=== PATIENT | male | born 1935 | race Caucasian/White ===

== ENCOUNTER 2019-03-10 18:13 | Inpatient (IN) | payer MEDICARE, BC ==
[~2019-03-10] VITALS: Ht 168.9 cm; Wt 76.7 kg
[2019-03-10] MEDS ORDERED: IV NORMAL SALINE 1,000ML 1,000 ML IV ONE ×3 (18:30→21:15)
--- NOTE | 2019-03-10 18:35 | EKG ---
[address] [address] Test Date: 2019-03-10 Test Time: 18:19:48 Pat Name: CHACHA HA Department: Room: Gender: M [employer] Operator: NABIL : 1935 Requested By: KYARA LO Order Number: [id number] Reading MD: Measurements Intervals [place] Rate: 115 P: -135 KS: 96 QRS: 83 QRSD: 92 T: 62 QT: 318 QTc: 442 Interpretive Statements SINUS TACHYCARDIA QRS(T) CONTOUR ABNORMALITY CONSIDER ANTEROSEPTAL MYOCARDIAL DAMAGE POSSIBLY ABNORMAL ECG RI6.01 No previous ECG available for comparison
[2019-03-10 18:45] LABS: BASO # 0.1 x10^3/uL (0.0-0.2); BASO % 1 % (0-3); EOS # 0.3 x10^3/uL (0.0-0.7); EOS % 2 % (0-3); HEMATOCRIT 44.1 % (39.0-53.0); HEMOGLOBIN 14.1 g/dL (13.0-17.5); LYMPH # 5.1 x10^3/uL (1.0-4.8); LYMPH % 36 % (24-48); MEAN CORPUSCULAR HEMOGLOBIN 29 pg (25-35); MEAN CORPUSCULAR HGB CONC 32 g/dL (31-37); MEAN CORPUSCULAR VOLUME 90 fL (79-100); MONO # 1.3 x10^3/uL (0.0-1.1); MONO % 9 % (0-9); NEUT # 7.3 x10^3uL (1.8-7.7); NEUT % 52 % (31-73); PLATELET COUNT 223 x10^3/uL (140-400); RED BLOOD COUNT 4.89 x10^6/uL (4.30-5.70); WHITE BLOOD COUNT 14.2 x10^3/uL (4.0-11.0)
--- NOTE | 2019-03-10 19:01 | RAD ---
INDICATION: Altered mental status and head and neck pain COMPARISON: None. TECHNIQUE: Axial CT images obtained through the head and cervical spine. One or more of the following individualized dose reduction techniques were utilized for this examination: 1. Automated exposure control; 2. Adjustment of the mA and/or kV according to patient size; 3. Use of iterative reconstruction technique. FINDINGS: Head: No midline shift. Suprasellar cistern is not effaced. Bowing of nasal septum to the right. No acute intracranial hemorrhage. Diffuse prominence of the ventricles and sulci. Cervical spine: Degenerative changes of the cervical spine with multilevel central canal and neural foraminal stenosis. There is some pannus formation at the dens. Mild superior endplate compression fracture of T1 and T2 of unknown age. Grade 1 anterolisthesis of C4 on 5 and C7 on T1. IMPRESSION: 1. No acute intracranial hemorrhage. 2. Scattered foci low density of the white matter. Nonspecific but can be seen with sequela small vessel ischemic disease. 3. Diffuse prominence of ventricles and sulci which can be seen with age-related volume loss. Other causes such as normal pressure hydrocephalus not excluded. 4. Mild compression fractures at T1 and T2 of unknown age. Would correlate with symptoms in the region. 5. 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 Report called to the ER at 6:50 PM on date of exam Electronically signed by: Miguel A Raza MD (03/10/2019 6:58 PM) [facility]
[2019-03-10 19:10] LABS: ALBUMIN 4.4 g/dL (3.4-5.0); ALBUMIN/GLOBULIN RATIO 1.6 (1.0-1.7); CALCIUM 9.6 mg/dL (8.5-10.1); CREATININE 1.5 mg/dL (0.7-1.3); GFR 44.8; MAGNESIUM 2.1 mg/dL (1.8-2.4); POTASSIUM 3.5 mmol/L (3.5-5.1); TOTAL BILIRUBIN 0.2 mg/dL (0.2-1.0); TOTAL PROTEIN 7.2 g/dL (6.4-8.2)
[2019-03-10] MEDS ORDERED: ACETAMINOPHEN 325 MG TABLET PO PRN (21:15)
[2019-03-10] MEDS ORDERED: ONDANSETRON PF 4 MG/2 ML VIAL. IV PRN (21:15)
[2019-03-10] MEDS ORDERED: DEXTROSE 50% 25 GM / 50ML DISP.SYRIN. IV PRN (21:15)
[2019-03-10 23:00] VITALS: BP 118/59
--- NOTE | 2019-03-10 23:02 | PHYS DOC ---
Past History Past Medical History: High Cholesterol, Hypertension Past Surgical History: Cholecystectomy, Tonsillectomy Alcohol Use: None Drug Use: None Adult General Chief Complaint Chief Complaint: ALTERED MENTAL STATUS HPI HPI Patient is a [age] year old [sex] who presents with [] Review of Systems Review of Systems Constitutional: Denies fever or chills [] Eyes: Denies change in visual acuity, redness, or eye pain [] HENT: Denies nasal congestion or sore throat [] Respiratory: Denies cough or shortness of breath [] Cardiovascular: No additional information not addressed in HPI [] GI: Denies abdominal pain, nausea, vomiting, bloody stools or diarrhea [] : Denies dysuria or hematuria [] Musculoskeletal: Denies back pain or joint pain [] Integument: Denies rash or skin lesions [] Neurologic: Denies headache, focal weakness or sensory changes [] Endocrine: Denies polyuria or polydipsia [] All other systems were reviewed and found to be within normal limits, except as documented in this note. Current Medications Current Medications Current Medications Medications (Trade) Dose Ordered Sig/Magi Start Time Stop Time Status Last Admin Dose Admin Acetaminophen (Tylenol) 650 mg PRN Q4HRS PRN 03/10/19 21:15 03/11/19 21:14 Dextrose (Dextrose 50%-Water Syringe) 12.5 gm PRN Q15MIN PRN 03/10/19 21:15 Ondansetron HCl (Zofran) 4 mg PRN Q4HRS PRN 03/10/19 21:15 03/11/19 21:14 Sodium Chloride 1,000 ml @ 75 mls/hr 1X ONCE 03/10/19 21:15 03/11/19 10:34 03/10/19 22:04 75 MLS/HR Allergies Allergies Allergies Coded Allergies Type Severity Reaction Last Updated Verified Penicillins Allergy Unknown 03/10/19 Yes metoprolol Allergy Unknown 03/10/19 Yes Physical Exam Physical Exam Constitutional: Well developed, well nourished, no acute distress, non-toxic appearance. [] HENT: Normocephalic, atraumatic, bilateral external ears normal, oropharynx moist, no oral exudates, nose normal. [] Eyes: PERRLA, EOMI, conjunctiva normal, no discharge. [] Neck: Normal range of motion, no tenderness, supple, no stridor. [] Cardiovascular:Heart rate regular rhythm, no murmur [] Lungs & Thorax: Bilateral breath sounds clear to auscultation [] Abdomen: Bowel sounds normal, soft, no tenderness, no masses, no pulsatile masses. [] Skin: Warm, dry, no erythema, no rash. [] Back: No tenderness, no CVA tenderness. [] Extremities: No tenderness, no cyanosis, no clubbing, ROM intact, no edema. [] Neurologic: Alert and oriented X 3, normal motor function, normal sensory function, no focal deficits noted. [] Psychologic: Affect normal, judgement normal, mood normal. [] Current Patient Data Vital Signs Vital Signs Date Time Temp Pulse Resp B/P (MAP) Pulse Ox O2 Delivery O2 Flow Rate FiO2 03/10/19 18:43 102 18 117/53 (74) 96 Room Air 03/10/19 18:15 98.0 Lab Results Laboratory Tests Test 03/10/19 18:15 White Blood Count 14.2 x10^3/uL (4.0-11.0) H Red Blood Count 4.89 x10^6/uL (4.30-5.70) Hemoglobin 14.1 g/dL (13.0-17.5) Hematocrit 44.1 % (39.0-53.0) Mean Corpuscular Volume 90 fL (79-100) Mean Corpuscular Hemoglobin 29 pg (25-35) Mean Corpuscular Hemoglobin Concent 32 g/dL (31-37) Red Cell Distribution Width 14.0 % (11.5-14.5) Platelet Count 223 x10^3/uL (140-400) Neutrophils (%) (Auto) 52 % (31-73) Lymphocytes (%) (Auto) 36 % (24-48) Monocytes (%) (Auto) 9 % (0-9) Eosinophils (%) (Auto) 2 % (0-3) Basophils (%) (Auto) 1 % (0-3) Neutrophils # (Auto) 7.3 x10^3uL (1.8-7.7) Lymphocytes # (Auto) 5.1 x10^3/uL (1.0-4.8) H Monocytes # (Auto) 1.3 x10^3/uL (0.0-1.1) H Eosinophils # (Auto) 0.3 x10^3/uL (0.0-0.7) Basophils # (Auto) 0.1 x10^3/uL (0.0-0.2) Prothrombin Time 10.0 SEC (9.4-11.4) Prothrombin Time INR 1.0 (0.9-1.1) PTT 24 SEC (23-33) Sodium Level 137 mmol/L (136-145) Potassium Level 3.5 mmol/L (3.5-5.1) Chloride Level 98 mmol/L (98-107) Carbon Dioxide Level 12 mmol/L (21-32) L Anion Gap 27 (6-14) H Blood Urea Nitrogen 13 mg/dL (8-26) Creatinine 1.5 mg/dL (0.7-1.3) H Estimated GFR (Cockcroft-Gault) 44.8 BUN/Creatinine Ratio 9 (6-20) Glucose Level 95 mg/dL (70-99) Lactic Acid Level 17.4 mmol/L (0.4-2.0) *H Calcium Level 9.6 mg/dL (8.5-10.1) Magnesium Level 2.1 mg/dL (1.8-2.4) Total Bilirubin 0.2 mg/dL (0.2-1.0) Aspartate Amino Transferase (AST) 21 U/L (15-37) Alanine Aminotransferase (ALT) 26 U/L (16-63) Alkaline Phosphatase 67 U/L (46-116) Creatine Kinase 93 U/L (39-308) Creatine Kinase MB (Mass) 1.2 ng/mL (0.0-3.6) Creatine Kinase MB Relative Index 1.3 % (0-4) Troponin I Quantitative < 0.017 ng/mL (0-0.055) Total Protein 7.2 g/dL (6.4-8.2) Albumin 4.4 g/dL (3.4-5.0) Albumin/Globulin Ratio 1.6 (1.0-1.7) Ethyl Alcohol Level < 10 mg/dL (0-10) EKG EKG @1819 Sinus tachycardia at 115bpm, slight ST depression noted to V3-V6, no reciprocal elevation, wandering baseline, QRS 92ms, QT/QTc 318/442ms Radiology/Procedures Radiology/Procedures PROCEDURE: CT HEAD AND CERVICAL SPINE WO INDICATION: Altered mental status and head and neck pain COMPARISON: None. TECHNIQUE: Axial CT images obtained through the head and cervical spine. One or more of the following individualized dose reduction techniques were utilized for this examination: 1. Automated exposure control; 2. Adjustment of the mA and/or kV according to patient size; 3. Use of iterative reconstruction technique. FINDINGS: Head: No midline shift. Suprasellar cistern is not effaced. Bowing of nasal septum to the right. No acute intracranial hemorrhage. Diffuse prominence of the ventricles and sulci. Cervical spine: Degenerative changes of the cervical spine with multilevel central canal and neural foraminal stenosis. There is some pannus formation at the dens. Mild superior endplate compression fracture of T1 and T2 of unknown age. Grade 1 anterolisthesis of C4 on 5 and C7 on T1. IMPRESSION: 1. No acute intracranial hemorrhage. 2. Scattered foci low density of the white matter. Nonspecific but can be seen with sequela small vessel ischemic disease. 3. Diffuse prominence of ventricles and sulci which can be seen with age-related volume loss. Other causes such as normal pressure hydrocephalus not excluded. 4. Mild compression fractures at T1 and T2 of unknown age. Would correlate with symptoms in the region. 5. 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 Report called to the ER at 6:50 PM on date of exam Electronically signed by: Miguel A Raza MD (03/10/2019 6:58 PM) [facility] CXR AP (preliminary interpretation by ED physician): NO acute process Course & Med Decision Making Course & Med Decision Making Pertinent Labs and Imaging studies reviewed. (See chart for details) [] Dragon Disclaimer Dragon Disclaimer This electronic medical record was generated, in whole or in part, using a voice recognition dictation system. Departure Departure: Impression: Primary Impression: New onset seizure Additional Impression: Lactic acidosis Disposition: ADMITTED INPATIENT Admitting Physician: Дмитрий Lewis Condition: STABLE Referrals: DEIRDRE NUÑEZ (PCP) Problem Qualifiers KYARA LO DO Mar 10, 2019 23:02
[2019-03-10 23:50] LABS: BILIRUBIN,URINE NEG (NEG); CLARITY,URINE CLEAR; COLOR,URINE YELLOW; GLUCOSE,URINE NEG (NEG); NITRITE,URINE NEG (NEG); UROBILINOGEN,URINE 0.2 mg/dL (0.2 mg/dL)
[2019-03-10 23:57] LABS: BACTERIA,URINE 0 /HPF (0-FEW); RBC,URINE OCC /HPF (0-2); SQUAMOUS EPITHELIAL CELL,UR FEW /LPF; WBC,URINE OCC /HPF (0-4)
[2019-03-10] MEDS ORDERED: LANS30CA PO (23:57)
[2019-03-10] MEDS ORDERED: ASPI81TA50 PO (23:57)
[2019-03-10] MEDS ORDERED: ATOR10TA60 PO (23:57)
[2019-03-10] MEDS ORDERED: GLUC100018 PO (23:57)
[2019-03-10] MEDS ORDERED: METF10007 PO (23:57)
[2019-03-10] MEDS ORDERED: TAMS0.4C97 PO (23:57)
[2019-03-10] MEDS ORDERED: DILT180C79 PO (23:57)
[2019-03-10] MEDS ORDERED: INSU100I15 SQ (23:57)
[2019-03-10] MEDS ORDERED: INSU100I32 SQ (23:57)
[2019-03-10] MEDS ORDERED: PSYL0.527 PO (23:57)
[2019-03-10] MEDS ORDERED: LATA2.5D3 OD (23:57)
[2019-03-10] MEDS ORDERED: CHLO25TA2 PO (23:57)
[2019-03-10] MEDS ORDERED: LOSA50TA14 PO (23:57)
[2019-03-11 05:38] VITALS: BP 131/73
[2019-03-11] MEDS: INSULIN LISPRO 300 UNITS/3 ML INSULN.PEN. SQ SCH ×4 (08:00→12:00)
[2019-03-11] MEDS ORDERED: metFORMIN 500 MG TABLET PO SCH (08:00)
[2019-03-11] MEDS ORDERED: PANTOPRAZOLE 40 MG TABLET. PO SCH (08:00)
[2019-03-11] MEDS ORDERED: ASPIRIN ENTERIC COATED 81 MG TABLET.DR. PO SCH ×2 (08:00→21:00)
--- NOTE | 2019-03-11 08:29 | RAD ---
EXAM: AP View of the chest DATE: 03/10/2019 6:06 PM INDICATION: Altered mental status COMPARISON: No Prior FINDINGS/ IMPRESSION: 1. The heart is not enlarged. 2. Atherosclerotic calcifications of aorta are seen.. 3. Patchy opacities peripheral left lung base likely atelectasis. 4. No pleural effusion or pneumothorax. Electronically signed by: Raj Blum MD (03/11/2019 8:27 AM) [facility]
[2019-03-11] MEDS ORDERED: CHLORTHALIDONE 25 MG TABLET PO SCH (09:00)
[2019-03-11] MEDS ORDERED: PSYLLIUM SEED (WITH SUGAR) PACKET. PO SCH (09:00)
[2019-03-11] MEDS ORDERED: ATORVASTATIN CALCIUM 10 MG TABLET. PO SCH ×2 (09:00→21:00)
[2019-03-11] MEDS ORDERED: LOSARTAN 25 MG TABLET. PO SCH ×2 (09:00→21:00)
[2019-03-11] MEDS ORDERED: GLUCOSAMINE 500 MG CAPSULE PO SCH ×2 (09:00→12:00)
[2019-03-11 10:22] VITALS: BP 153/82
[2019-03-11 15:37] VITALS: BP 151/80
--- NOTE | 2019-03-11 17:36 | HP ---
ADMIT DATE: 03/10/2019 HISTORY OF PRESENT ILLNESS: The patient is an 83-year-old male patient who was seen yesterday in the Emergency Room with what seems to be a new onset of seizures and altered mental status as per his 's description and he apparently stiffened and had what seemed to be tonic-clonic seizures. He bit himself but did not bite his tongue. She managed to hold him to put him on the chair and eventually he was eased down to the floor and the whole episode lasted about 2 minutes and then he continued to be unresponsive and was in a postictal state until he arrived to the Emergency Room. He was extensively investigated in the Emergency Room and has had lab work done showed there is mild leukocytosis and has also had lactic acidosis of 17.[address] scan was unremarkable and it did show that the patient has no acute intracranial hemorrhage. There were scattered foci of low density of the white matter, nonspecific, can be seen with sequela of small vessel ischemic disease, has diffuse prominence of ventricles and sulci that can be seen with age-related volume loss. Other causes include normal pressure hydrocephalus that cannot be excluded. There is mild compression fracture at T1 and T2, of unknown age, would correlate with symptoms in the region, has also severe degenerative changes of the spine with multiple central canal and neural foramina. There is some pannus formation and mild superior endplate compression fracture of T1 and T2 of unknown age, grade 1 anterolisthesis of C4 on C5 and C7 on T1. He was admitted and was continued on his medications. PAST MEDICAL HISTORY: Significant for hypertension, hyperlipidemia, type 2 diabetes, benign prostatic hypertrophy, has also diabetic proliferative retinopathy. 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 PAST SURGICAL HISTORY: Significant for cholecystectomy, tonsillectomy. FAMILY HISTORY: Unremarkable. SOCIAL HISTORY: He is , lives with his . He does not smoke, drink alcohol or use any recreational drugs. The patient has been just returned from a 3000-mile trip all the way to [place] and back. PHYSICAL EXAMINATION: GENERAL: On arrival to the Emergency Room, he looked well and was clearly in no apparent respiratory distress. No pallor, jaundice, cyanosis or thyromegaly. No jugular venous distention. No limb edema. VITAL SIGNS: His heart rate was 112, blood pressure was 120/57, temperature was 98, respiratory rate 20, and oxygen saturation was 96%. HEAD, EYES, EARS, NOSE AND THROAT: Showed normocephalic, atraumatic. NECK: Supple. HEART: Showed normal first and second heart sounds. No gallop, rub or murmur. CHEST: Clear to auscultation. No crepitation or rhonchi. ABDOMEN: Distended, soft, nontender. NEUROLOGIC: He was apparently initially in a postictal state; however, then more awake, alert, oriented x 3, has normal motor function ____ obvious focal deficit noted. His lab work in the Emergency Room showed a white cell count 14,200, hemoglobin 14, hematocrit 44, MCV 90 and platelet count 223,000. His serum sodium was 137, potassium 3.5, chloride 98, bicarbonate 12, anion gap of 27, BUN 13, creatinine 1.5, estimated GFR was 44 mL per minute, his glucose was 95, lactic acid was 17.4, calcium was 9.6, magnesium was 2.1. Total bilirubin, AST, ALT, alkaline phosphatase were normal. First set of cardiac enzyme was less than 0.017. His total protein was 7.2, albumin was 4.4. His prothrombin time was 10, INR 1, aPTT was 24. Urinalysis showed that the urine was yellow, clear with a pH of 6, specific gravity of 1.020. The urine was negative for protein, glucose, ketones, small amount of blood, negative for nitrites. There is negative leukocyte esterase. No rbc's and wbc's and no bacteria. Toxic screen showed ethyl alcohol to be less than 10. His chest x-ray showed that the patient's heart is not enlarged. Atherosclerotic calcification of the aorta is seen, patchy opacity in the left lung base, likely atelectasis, no pleural effusion or pneumothorax. CT scan of the head and cervical spine showed that there is no midline shift, suprasellar cisterns are not effaced ____ nasal septum to the right. No acute intracranial hemorrhage, diffuse prominence of the ventricles and sulci. Cervical spine showed degenerative changes of cervical spine with multilevel central canal and neural foraminal stenosis. There is some pannus formation and ____ mild superior endplate compression fracture at T1-T2 of unknown age, grade 1 anterolisthesis of C4 and C5 and C7-T1. The patient was admitted with a plan to consult our neurologist, Dr. Coleman, ____ continued his medications. YANELIS DE LEON MD DR: LOLY/sindi JOB#: [id number] / [id number]
--- NOTE | 2019-03-11 18:31 | DS ---
DATE OF DISCHARGE: 03/11/2019 DISCHARGE TRANSFER SUMMARY HOSPITAL COURSE: The patient is an 83-year-old male patient who was admitted last night with new onset seizure seemed to be by description his to be tonic-clonic seizures. He actually did not bite his tongue, but he became incontinent of urine and was in a postictal state. His blood sugar at the time of this event was 97 mg/dL and subsequent lab work showed no evidence of any metabolic abnormality to account for that. He did have lactic acidosis at 17.4, probably because of seizure that subsequently came down to 4 and he was seen by our neurologist who recommended an MRI and we are in the process of transferring him to [facility] and the family requested that he be transferred to [facility]. I did contact the transfer center and he was accepted there to be evaluated and further as he requires an MRI and probably EEG. He did also complain of pain in his left hip joint and as the patient is being transferred, I did not really order any x-rays and asked his to remind the treating physician there that he has a problem with his left leg and that they might have to look into it further. PHYSICAL EXAMINATION: GENERAL: When I examined him this afternoon, he was awake, alert, responding appropriately. He is blind in his right eye, but otherwise all his cranial nerves are intact. He denied any complaints. When I examined him, he is clearly in no apparent respiratory distress. No pallor, jaundice, cyanosis, or thyromegaly. No jugular venous distension. No limb edema. VITAL SIGNS: Her heart rate was 102, blood pressure was 117/53, temperature was 98, respiratory rate was 18 and oxygen saturation was 98% on room air. HEAD, EYES, EARS, NOSE AND THROAT: Normocephalic, atraumatic. NECK: Supple. HEART: Showed normal first and second heart sounds with no gallop, rub or murmur. CHEST: Clear to auscultation. No crepitation or rhonchi. ABDOMEN: Distended, soft, nontender. NEUROLOGICAL: He is awake, alert, responding appropriately. He is blind in his right eye, but otherwise all cranial nerves are intact. He moves extremities without difficulty. Did complain of some weakness in his left lower extremity due to pain in his left hip joint; however, was able to walk without assistance or assistive devices all the way to the bathroom. He was transferred to [facility] to continue on following medications: Losartan potassium 25 mg at bedtime, atorvastatin for Lipitor 5 mg at bedtime, aspirin 81 mg once a day, latanoprost 1 drop at bedtime, tamsulosin 0.4 mg at bedtime, Lantus insulin 25 units at bedtime, glucosamine sulfate 1000 mg at noon, diltiazem 180 mg daily, psyllium mucilloid for Metamucil 1 packet daily, chlorthalidone 12.5 mg daily, metformin 1000 mg twice a day, Protonix 40 mg once a day, Humalog insulin 15 units before meals. He is on Tylenol 650 mg every 4 hours and ondansetron 4 mg every 4 hours. FINAL DISCHARGE DIAGNOSES: 1. New onset tonic-clonic seizures. 2. Type 2 diabetes for which he is on Humalog and Lantus insulin as well as metformin. 3. Hypertension for which he is on diltiazem and chlorthalidone. 4. Hyperlipidemia for which he is on atorvastatin. 5. Glaucoma on latanoprost. 6. Benign prostatic hypertrophy, on Flomax. 7. 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 YANELIS DE LEON MD DR: LOLY/sindi JOB#: [id number] / [id number]
[2019-03-11] MEDS ORDERED: INSULIN GLARGINE 300 UNITS/3 ML INSULN.PEN. SQ SCH (21:00)
[2019-03-11] MEDS ORDERED: TAMSULOSIN 0.4 MG CAP.ER.24H. PO SCH (21:00)
[2019-03-11] MEDS ORDERED: LATANOPROST 0.005% OPHTH SOLUTION 2.5ML BOTTLE. OD SCH (21:00)
== END 2019-03-11 16:00 | disposition short-term general hospital (02) | DRG 101 ==
LOC: EDBD 18:13 → ER 18:13 → 1 SOUTH 21:15
PROVIDERS: ADMIT Internal Medicine; ATTEND Internal Medicine
DX: G40.89 Other seizures (principal); E87.2 Acidosis; M48.54XA Collapsed vertebra, not elsewhere classified, thoracic region, initial encounter for fracture; H33.21 Serous retinal detachment, right eye; E78.00 Pure hypercholesterolemia, unspecified; I10 Essential (primary) hypertension; D72.829 Elevated white blood cell count, unspecified; E78.5 Hyperlipidemia, unspecified; N40.0 Benign prostatic hyperplasia without lower urinary tract symptoms; E11.3599 Type 2 diabetes mellitus with proliferative diabetic retinopathy without macular edema, unspecified eye; H54.61 Unqualified visual loss, right eye, normal vision left eye; Z90.49 Acquired absence of other specified parts of digestive tract; Z88.0 Allergy status to penicillin; Z88.8 Allergy status to other drugs, medicaments and biological substances; H40.9 Unspecified glaucoma; R32 Unspecified urinary incontinence
CPT/HCPCS: 36415; 70450; 71045; 72125; 80053; 81001; 82553; 82947; 83605; 83735; 84484; 85025; 85610; 85730; 93005; 96361; 96374; G0480; J1815; J2060; 99285-25; J7030